=== PATIENT | male | born 1975 | race Caucasian/White ===

== ENCOUNTER 2019-04-21 19:23 | Emergency (ER) | payer MEDICAID ==
[~2019-04-21] VITALS: Wt 135.6 kg
[2019-04-21 19:51] VITALS: Wt 135.6 kg
[2019-04-21] MEDS ORDERED: SOD CHLORIDE 0.9% 1,000 ML IV STA (20:16)
[2019-04-21] MEDS ORDERED: ONDANSETRON 4 MG INJ IV STA (20:16)
[2019-04-21] MEDS ORDERED: morphine 4 MG/ML VIAL IV STA (20:16)
[2019-04-21] MEDS ORDERED: SOD CHLORIDE 0.9% 100 ML ONE (21:58)
[2019-04-21] MEDS ORDERED: IOHEXOL 300MG/ML 150 ML BTL ONE (21:58)
[2019-04-21] MEDS ORDERED: IBUP-1542 PO (23:29)
[2019-04-21 23:30] VITALS: BP 115/60; PULSE 70; RESP 16
--- NOTE | 2019-04-21 23:33 | ERD ---
ER Documentation Chief Complaint Chief Complaint FALL FROM 7FT LADDER X2HRS AGO MID-BACK PAIN NO LOC NO HEMATURIA HPI Patient is a 43-year-old male with obesity who presents with a fall off of a ladder. He fell from approximately 12 feet. This happened 2 hours ago. He fell backwards onto his back. He said that his whole back hurts. He does not currently have a primary doctor. He has had no treatment as of yet. Pain has been constant. ROS All systems reviewed and are negative except as per history of present illness. Medications Home Meds Active Scripts Ibuprofen* (Motrin*) 600 Mg Tab, 600 MG PO Q6H PRN for PAIN AND OR ELEVATED TEMP, #30 TAB Prov:ROMANA PATEL MD 04/21/19 Allergies Allergies: Coded Allergies: No Known Allergies (Verified Allergy, 10/15/13) Uncoded Allergies: NONE (Allergy, 10/15/13) PMhx/Soc Medical and Surgical Hx: pt denies Medical Hx, pt denies Surgical Hx Hx Alcohol Use: No Hx Substance Use: No Hx Tobacco Use: No Smoking Status: Never smoker FmHx Family History: diabetes Physical Exam Vitals Vital Signs Date Temp Pulse Resp B/P (MAP) Pulse Ox O2 O2 Flow FiO2 Time Delivery Rate 04/21/19 98.9 76 22 199/95 95 19:51 (129) Physical Exam Const: Moderate distress Head: Atraumatic Eyes: Normal Conjunctiva ENT: Normal External Ears, Nose and Mouth. Neck: C-collar put in place by tech Resp: Clear to auscultation bilaterally Cardio: Regular rate and rhythm, no murmurs Abd: Soft, non tender, non distended. Normal bowel sounds Skin: No petechiae or rashes Back: No midline or flank tenderness Ext: No cyanosis, or edema Neur: Awake and alert Psych: Normal Mood and Affect Result Diagram: 04/21/19202404/21/192024 Results 24 hrs Laboratory Tests Test 04/21/19 20:25 White Blood Count 10.8 10^3/ul Red Blood Count 4.81 10^6/ul Hemoglobin 14.2 g/dl Hematocrit 43.7 % Mean Corpuscular Volume 90.9 fl Mean Corpuscular Hemoglobin 29.5 pg Mean Corpuscular Hemoglobin Concent 32.5 g/dl Red Cell Distribution Width 13.3 % Platelet Count 320 10^3/UL Mean Platelet Volume 9.4 fl Immature Granulocytes % 0.600 % Neutrophils % 67.8 % Lymphocytes % 20.9 % Monocytes % 7.2 % Eosinophils % 2.9 % Basophils % 0.6 % Nucleated Red Blood Cells % 0.0 /100WBC Immature Granulocytes # 0.060 10^3/ul Neutrophils # 7.3 10^3/ul Lymphocytes # 2.3 10^3/ul Monocytes # 0.8 10^3/ul Eosinophils # 0.3 10^3/ul Basophils # 0.1 10^3/ul Nucleated Red Blood Cells # 0.0 10^3/ul Sodium Level 139 mmol/L Potassium Level 4.2 mmol/L Chloride Level 101 mmol/L Carbon Dioxide Level 31 mmol/L Anion Gap 7 Blood Urea Nitrogen 19 mg/dl Creatinine 0.74 mg/dl Est Glomerular Filtrat Rate mL/min > 60 mL/min Glucose Level 107 mg/dl Calcium Level 9.1 mg/dl Total Bilirubin 0.4 mg/dl Direct Bilirubin 0.00 mg/dl Indirect Bilirubin 0.4 mg/dl Aspartate Amino Transf (AST/SGOT) 63 IU/L Alanine Aminotransferase (ALT/SGPT) 42 IU/L Alkaline Phosphatase 112 IU/L Total Protein 7.5 g/dl Albumin 4.0 g/dl Globulin 3.50 g/dl Albumin/Globulin Ratio 1.14 Lipase 65 U/L Current Medications Medications Dose Sig/Farzaneh Start Time Status Last (Trade) Ordered Route PRN Stop Time Admin Dose Reason Admin Sodium 1,000 ml @ Q1H STAT 04/21/19 DC 04/21/19 Chloride 1,000 mls/hr IV 20:16 20:40 04/21/19 21:15 Morphine 4 mg ONCE STAT 04/21/19 DC 04/21/19 Sulfate IV 20:16 20:40 (morphine) 04/21/19 20:18 Ondansetron 4 mg ONCE STAT 04/21/19 DC 04/21/19 HCl (Zofran IV 20:16 20:40 Inj) 04/21/19 20:18 IV Flush 10 ml STK-MED 04/21/19 DC 04/21/19 (NS 10 ml) ONCE .ROUTE 21:58 22:38 04/21/19 21:59 Sodium 100 ml @ ud STK-MED 04/21/19 DC 04/21/19 Chloride ONCE .ROUTE 21:58 22:38 04/21/19 21:59 Iohexol 150 ml STK-MED 04/21/19 DC 04/21/19 (Omnipaque ONCE .ROUTE 21:58 22:38 300mg/ ml) 04/21/19 21:59 Procedures/MDM CT brain read by radiology. CT cervical spine read by radiology. CT chest/abdomen/pelvis read by radiology possible kidney mass renal cell carcinoma. Patient is a 43-year-old male who presents after a fall. The patient had a pichardo scan which shows no sign of serious traumatic injury or fracture. However there was an incidental finding of a left kidney mass which was concerning for possible renal cell carcinoma. I did give the patient this information and told him that he would need to follow-up closely with both the primary doctor and will be provided in a list as well as an oncologist and I will provide Dr. Winslow's information. He should follow-up within the next 24 to 48 hours and will likely need biopsy to confirm. The patient will be given a prescription for ibuprofen for pain. He was given copies of laboratory studies and imaging studies prior to discharge. The patient can return for any worsening symptoms. Maltese translation was used. Departure Diagnosis: Primary Impression: Left kidney mass Additional Impression: Fall Encounter type: initial encounter Qualified Codes: W19.XXXA - Unspecified fall, initial encounter Condition: Fair Patient Instructions: What Is Kidney (Renal) Cancer?, Fall, Mechanical Referrals: [facility] () Usted se lake hecho un examen mdico de control que le indica que no est en rosaura condicin que requiera tratamiento urgente en el Departamento de Emergencia. Un estudio ms profundo y el tratamiento de hinojosa condicin pueden esperar sin ningn riesgo hasta que usted sea atendida/o en el consultorio de hinojosa mdico o rosaura clnica. Es responsabilidad suya arreglar rosaura rk para el seguimiento del myrna. MANEJO DE CONDICIONES NO URGENTES EN EL FUTURO 1) Si usted tiene un mdico de atencin primaria: Usted debera llamar a hinojosa mdico de atencin primaria antes de venir al departamento de emergencia. Despus de las horas de consultorio, hinojosa doctor o hinojosa asociado/a est disponible por telfono. El mdico o enfermero de saida en el servicio telefnico puede asesorarle por tony medio para atender el problema, o myrna contrario se puede programar rosaura rk. 2) Si usted no tiene un mdico de atencin primaria: Llame al mdico o clnica de referencia que aparece abajo gabriela las horas de consultorio para hacer rosaura rk para que le vean. CLINICAS: [place] [address] [phone] [facility] [phone] [place] [address] [phone] [place] [address] [phone] [facility] [place] [address] [phone] [place] [phone] [address] Additional Instructions: Llame al doctor MAANA y lev rosaura RK PARA DENTRO DE 1-2 STEVENS.Dgale a la secretaria que nosotros le instruimos hacer esta rk.Avise o llame si hinojosa condicin se empeora antes de la rk. Regresa aqui si peor o no mejor. ROMANA PATEL MD April 21, 2019 23:32
== END 2019-04-21 23:57 | disposition home or self-care (01) ==
LOC: E/R 19:23
DX: N28.89 Other specified disorders of kidney and ureter (principal)
CPT/HCPCS: 70450; 71260; 72125; 74177; 80053; 83690; 85025; J2270; J2405; J7030; Q9967; Z7610; 36415; 96374; 96375

== ENCOUNTER 2019-06-22 17:50 | Emergency (ER) | payer SELFPAY ==
[~2019-06-22] VITALS: Ht 160 cm; Wt 132.3 kg
[~2019-06-22 17:50] MED LIST: ACET-141 PO; IBUP-1542 PO
[2019-06-22 18:41] VITALS: BP 140/85; PULSE 73; RESP 18; Ht 160 cm; Wt 132.3 kg
--- NOTE | 2019-06-22 20:57 | ERD ---
ER Documentation Chief Complaint Chief Complaint pain left foot x 1 day, states possible insect bite HPI 43-year-old male with history of diabetes presents for left foot pain x1 day. He states he has an area of discoloration of the left foot as well as the foot pain. The pain described as a 5 out of 10 pain. There is no pain radiation. Describes the pain as a dull sensation. Movement makes the pain worse. Rest makes the pain better. He states he was in a [place] recently and was concerned about a bug bite. Denies fevers or chills. Denies chest pain or shortness of breath. Denies abdominal pain, nausea, vomiting. Denies trauma. No other modifying factors noted, no treatment tried at home. ROS All systems reviewed and are negative except as per history of present illness. Medications Home Meds Active Scripts Acetaminophen* (Acetaminophen*) 500 MG Extra Strength Tablet, 500 MG PO Q4H PRN for PAIN AND OR ELEVATED TEMP, #30 TAB Prov:XIANG JACOBS DO 06/22/19 Ibuprofen* (Motrin*) 600 Mg Tab, 600 MG PO Q6H PRN for PAIN AND OR ELEVATED TEMP, #30 TAB Prov:ROMANA PATEL MD 04/21/19 Allergies Allergies: Coded Allergies: No Known Allergies (Verified Allergy, 10/15/13) Uncoded Allergies: NONE (Allergy, 10/15/13) PMhx/Soc Medical and Surgical Hx: pt denies Surgical Hx Hx Miscellaneous Medical Probl: Yes (Diabetes) Hx Alcohol Use: Yes Hx Substance Use: No Hx Tobacco Use: No FmHx Family History: No coronary disease Physical Exam Vitals Vital Signs Date Temp Pulse Resp B/P (MAP) Pulse Ox O2 O2 Flow FiO2 Time Delivery Rate 06/22/19 98.7 73 18 140/85 96 18:41 (103) Physical Exam Const: No acute distress Resp: Clear to auscultation bilaterally Cardio: Regular rate and rhythm, no murmurs Skin: No petechiae or rashes Back: No midline or flank tenderness Neur: Awake and alert Psych: Normal Mood and Affect Lower Extremity -left Skin: No laceration, mild left foot brownish discoloration over the medial side of the left foot Compartments: Soft Motor: Full active range of motion hip/knee/ankle/foot Sensation: Intact to light touch FDWS/MF/LF/P surfaces. Bones: Nontender pelvis/knee/proximal tibia/there is some tenderness over the entire left foot. Joints: No effusion or laxity Pulses/Perfusion: 2+ DP, Capillary refill < 2 seconds Procedures/MDM Medical Decision Making: Differential diagnosis includes but not limited to fracture, dislocation, muscle strain, ligamentous sprain, septic joint, osteomyelitis, gout, Patient appeared well on physical exam. There was tenderness over the left foot Patient was neurovascularly intact Patient denies fever, no recent infection, low suspicion for septic joint or osteomyelitis. There was no swelling, just discoloration over the left foot medially. Malik rovascularly intact There was no swelling, no history of trauma, denies recent infection, denies ferver, therefore imaging felt unnecessary Prescription(s): Patient given prescription for supportive medication(s). Patient advised to follow up with PCP in 1-2 days. Patient advised to return to ED for new or worsening symptoms. Patient stable on discharge from the ED. Disclaimer: Inadvertent spelling and grammatical errors are likely due to EHR/dictation software use and do not reflect on the overall quality of patient care. Also, please note that the electronic time recorded on this note does not necessarily reflect the actual time of the patient encounter. Departure Diagnosis: Primary Impression: Foot pain Condition: Fair Patient Instructions: Contusions (Bruises) Referrals: [facility] YOU HAVE RECEIVED A MEDICAL SCREENING EXAM AND THE RESULTS INDICATE THAT YOU DO NOT HAVE A CONDITION THAT REQUIRES URGENT TREATMENT IN THE EMERGENCY DEPARTMENT. FURTHER EVALUATION AND TREATMENT OF YOUR CONDITION CAN WAIT UNTIL YOU ARE SEEN IN YOUR DOCTORS OFFICE WITHIN THE NEXT 1-2 DAYS. IT IS YOUR RESPONSIBILITY TO MAKE AN APPOINTMENT FOR FOLOW-UP CARE. IF YOU HAVE A PRIMARY DOCTOR --you should call your primary doctor and schedule an appointment IF YOU DO NOT HAVE A PRIMARY DOCTOR YOU CAN CALL OUR PHYSICIAN REFERRAL HOTLINE AT IF YOU CAN NOT AFFORD TO SEE A PHYSICIAN YOU CAN CHOSE FROM THE FOLLOWING [facility] [address] [facility] [address] [facility] [address] [facility] [address] [facility] [facility] [address] [facility]. [facility] [address] Additional Instructions: Llame al doctor MAANA y lev rosaura RK PARA DENTRO DE 1-2 STEVENS.Dgale a la secretaria que nosotros le instruimos hacer esta rk.Avise o llame si hinojosa condicin se empeora antes de la rk. Regresa aqui si peor o no mejor. XIANG JACOBS DO Jun 22, 2019 20:57
== END 2019-06-22 19:44 | disposition home or self-care (01) ==
LOC: E/R 17:50
DX: M79.672 Pain in left foot (principal)
CPT/HCPCS: 99282